=== PATIENT | female | born 2000 | race Caucasian/White ===

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

== ENCOUNTER 2025-02-15 20:24 | Inpatient (IN) | payer BC ==
[2025-02-15] MEDS ORDERED: Carboprost Tromethamine 250 MCG/1 mL Vial IM PRN (20:46)
[2025-02-15] MEDS ORDERED: Butorphanol 1 MG/ML SDV IVPUSH PRN (20:46)
[2025-02-15] MEDS ORDERED: Sodium Chloride 0.9% 10 ML Syringe FLUSH PRN (20:46)
[2025-02-15] MEDS ORDERED: Sodium Chloride 0.9% 2.5 ML Syringe FLUSH PRN (20:46)
[2025-02-15] MEDS ORDERED: Ondansetron 4 MG/2 ML SDV IVPUSH PRN (20:46)
[2025-02-15] MEDS ORDERED: Water For Irrigation,Sterile 1,000 ML Container IRR PRN (20:46)
[2025-02-15] MEDS ORDERED: Oxytocin/0.9 % Sodium Chloride 30 UNIT/500 ML BAG IV SCH (21:00)
[2025-02-15] MEDS: Lactated Ringers 1,000 ML IV SCH (22:30)
[2025-02-15 23:12] LABS: MEAN PLATELET VOLUME 10.6 fL (9.4-12.3); NRBC ABSOLUTE 0.00 K/uL (0.00-0.02); NRBC PERCENT 0.0 /100WBC (0.0-0.2); PLATELET COUNT,PLT 197 K/uL (150-400); RED BLOOD CELL COUNT 4.43 M/uL (4.10-5.30); WHITE BLOOD CELL COUNT,WBC 17.22 K/uL (3.9-11.3)
[2025-02-16] MEDS ORDERED: ePHEDrine 50 MG/ML SDV IVPUSH PRN (00:12)
[2025-02-16] MEDS ORDERED: dexmedeTOMIDine HCl 200 MCG/2 ML SDV EPIDUR SCH (00:15)
[2025-02-16] MEDS: Ropivacaine HCl/PF 400 MG in Premix Bag 1 BAG EPIDUR SCH (00:33)
[2025-02-16] MEDS ORDERED: Terbutaline 1 MG/ML SDV SUBCUT PRN (05:45)
[2025-02-16] MEDS: Oxytocin/0.9 % Sodium Chloride 30 UNIT/500 ML BAG IV SCH (06:04)
[2025-02-16] MEDS: Witch Hazel Medicated Pads 40/Jar TOP ONE (13:45)
[2025-02-16] MEDS ORDERED: Lanolin 100% Cream 7 GM Tube TOP PRN (13:48)
[2025-02-16] MEDS ORDERED: Benzocaine/Menthol 20%-0.5% Spray 78 GM Cannister TOP PRN (13:48)
[2025-02-16] MEDS: Benzocaine/Menthol 20%-0.5% Spray 78 GM Cannister ONE (14:11)
[2025-02-16 15:11] LABS: PH,UMBILICAL ARTERIAL 7.139 (7.18-7.38); PH,UMBILICAL VENOUS 7.218 (7.25-7.45)
[2025-02-16] MEDS: Prenatal Multivitamin with Calcium/Folic Acid/Iron Tab PO SCH (15:56)
[2025-02-16] MEDS: Witch Hazel Medicated Pads 40/Jar TOP PRN (22:48)
[2025-02-17 05:37] LABS: MEAN PLATELET VOLUME 10.0 fL (9.4-12.3); NRBC ABSOLUTE 0.00 K/uL (0.00-0.02); NRBC PERCENT 0.0 /100WBC (0.0-0.2); PLATELET COUNT,PLT 158 K/uL (150-400); RED BLOOD CELL COUNT 4.04 M/uL (4.10-5.30); WHITE BLOOD CELL COUNT,WBC 19.37 K/uL (3.9-11.3)
[2025-02-17 09:11] VITALS: BP 107/57; PULSE 62
[2025-02-17] MEDS: Nalbuphine 10 MG/1 ML Vial IVPUSH ONE (09:35)
[2025-02-17] MEDS: dexmedeTOMIDine HCl 200 MCG/2 ML SDV ONE (09:36)
[2025-02-17] MEDS: Ropivacaine HCl/PF 200 ML ONE (09:36)
== END 2025-02-17 16:15 | disposition home or self-care (01) | DRG 560 ==
LOC: MW.OB 20:24 → MW.OBCHECK 20:24 → MW.OB 20:46 → MW.OBCHECK 20:55 → OBSVTOIN 02-16 10:22 → MW.OB 02-16 13:44
PROVIDERS: ADMIT Obstetrics & Gynecology; ATTEND Obstetrics & Gynecology
PROC: 10E0XZZ Delivery of Products of Conception, External Approach (ICD-10-PCS; principal; 2025-02-16)
PROC: 10907ZC Drainage of Amniotic Fluid, Therapeutic from Products of Conception, Via Natural or Artificial Opening (ICD-10-PCS; 2025-02-16)
PROC: 3E0R3BZ Introduction of Anesthetic Agent into Spinal Canal, Percutaneous Approach (ICD-10-PCS; 2025-02-16)
PROC: 0KQM0ZZ Repair Perineum Muscle, Open Approach (ICD-10-PCS; 2025-02-16)
DX: O70.1 Second degree perineal laceration during delivery (principal); Z3A.39 39 weeks gestation of pregnancy; Z37.0 Single live birth; O69.1XX0 Labor and delivery complicated by cord around neck, with compression, not applicable or unspecified; Z79.899 Other long term (current) drug therapy; Z98.890 Other specified postprocedural states
CPT/HCPCS: 01967; 36415; 51702; 59025; 59409; 82803; 85027; 86592; 86850; 86900; 86901; A9270-GY; J0665; J2371; J2590; J2795; J7120